=== PATIENT | female | born 1965 | race Hispanic/Latino ===

== ENCOUNTER 2022-07-13 16:11 | Inpatient (IN) | payer SELFPAY ==
[~2022-07-13] VITALS: Ht 157.5 cm; Wt 61.2 kg
[2022-07-13 17:00] LABS: BASOPHILS # (AUTO) 0.1 (0.0-0.1); BASOPHILS % 0.4 % (0.0-1.0); EOSINOPHILS # (AUTO) 0.1 (0.0-0.4); EOSINOPHILS % 0.7 % (0.0-6.0); HEMATOCRIT 27.3 % (34.2-44.1); HEMOGLOBIN 8.6 g/dL (12.0-16.0); LYMPHOCYTES % 16.3 % (18.0-39.1); MEAN CORPUSCULAR HEMOGLOBIN 23.2 pg (28-32); MEAN CORPUSCULAR HGB CONC 31.5 g/dL (31-35); MEAN CORPUSCULAR VOLUME 73.8 fL (81-99); MONOCYTES # (AUTO) 0.9 (0.2-0.8); NEUTROPHILS # (AUTO) 9.3 (2.1-6.9); NEUTROPHILS % 75.2 % (38.7-80.0); PLATELET COUNT 678 x10e3/uL (140-360); RED CELL DISTRIBUTION WIDTH 14.5 % (11.7-14.4)
[2022-07-13 17:27] LABS: ALBUMIN 2.7 g/dL (3.5-5.0); ALBUMIN/GLOBULIN RATIO 0.5 (0.8-2.0); ANION GAP 17.1 mmol/L (8-16); CALCIUM 8.5 mg/dL (8.4-10.2); CREATININE, SERUM 0.59 mg/dL (0.57-1.11); POTASSIUM 4.1 mmol/L (3.5-5.1)
[2022-07-13] MEDS ORDERED: SODIUM CHLORIDE 0.9% 1000ML 1,000 ML ONE (17:43)
[2022-07-13] MEDS ORDERED: SODIUM CHLORIDE 0.9% 1000ML 1,000 ML IV SCH (17:45)
[2022-07-13 20:45] VITALS: BP 130/76; PULSE 101; RESP 23; TEMP 98.3; O2SAT 96
[2022-07-13] MEDS ORDERED: METFORMIN HCL500 M2 PO (21:12)
[2022-07-13] MEDS ORDERED: METOPROLOL SUCC50 MG PO (21:12)
[2022-07-13] MEDS ORDERED: TRADJENTA5 MG PO (21:12)
[2022-07-13] MEDS ORDERED: LISINOPRIL10 MG PO (21:12)
[2022-07-13] MEDS ORDERED: LIPITOR20 MG PO (21:12)
[2022-07-13 21:30] VITALS: BP 130/76; PULSE 101; RESP 23; TEMP 98.3; O2SAT 96
[2022-07-13] MEDS: HYDROCODONE/APAP 5MG-325MG TAB PO PRN (21:47)
[2022-07-13 22:00] VITALS: BP 130/76; PULSE 101; RESP 23; TEMP 98.3; O2SAT 96
[2022-07-13] MEDS ORDERED: POLYETHYLENE GLYCOL 3350 17 GM PACK PO PRN (22:30)
[2022-07-13] MEDS ORDERED: ACETAMINOPHEN 325 MG TAB PO PRN (22:30)
[2022-07-13] MEDS ORDERED: METOPROLOL TARTRATE INJ 1 MG/ML VIAL IV PRN (22:30)
[2022-07-13] MEDS ORDERED: TEMAZEPAM 7.5 MG CAP PO PRN (22:30)
[2022-07-13] MEDS: ONDANSETRON HCL INJ 2MG/ML 2ML 2 MG/ML VIAL IV PRN (22:57)
[2022-07-13] MEDS: Morphine 2mg Syringe 2 MG/ML SYR IV PRN (22:57)
[2022-07-14] VITALS (8 sets, daily range): BP systolic 132–167; BP diastolic 70–84; PULSE 102–107; RESP 18–22; TEMP 98–98.5; O2SAT 96–100
[2022-07-14] MEDS: ONDANSETRON HCL INJ 2MG/ML 2ML 2 MG/ML VIAL IV PRN ×3 (04:51→16:45)
[2022-07-14] MEDS: Morphine 2mg Syringe 2 MG/ML SYR IV PRN (04:51)
[2022-07-14 05:14] LABS: BASOPHILS # (AUTO) 0.1 (0.0-0.1); BASOPHILS % 0.4 % (0.0-1.0); EOSINOPHILS # (AUTO) 0.1 (0.0-0.4); EOSINOPHILS % 0.9 % (0.0-6.0); HEMOGLOBIN 8.4 g/dL (12.0-16.0); LYMPHOCYTES # (AUTO) 2.1 (1.0-3.2); LYMPHOCYTES % 15.7 % (18.0-39.1); MEAN CORPUSCULAR HGB CONC 32.3 g/dL (31-35); MEAN CORPUSCULAR VOLUME 71.2 fL (81-99); MONOCYTES # (AUTO) 0.9 (0.2-0.8); NEUTROPHILS # (AUTO) 9.9 (2.1-6.9); NEUTROPHILS % 75.7 % (38.7-80.0); PLATELET COUNT 617 x10e3/uL (140-360); RED BLOOD COUNT 3.65 x10e6/uL (3.6-5.1); RED CELL DISTRIBUTION WIDTH 14.5 % (11.7-14.4)
[2022-07-14 05:35] LABS: ANION GAP 16.8 mmol/L (8-16); CALCIUM 8.4 mg/dL (8.4-10.2); CREATININE, SERUM 0.54 mg/dL (0.57-1.11); POTASSIUM 3.8 mmol/L (3.5-5.1)
[2022-07-14 05:59] LABS: CHOL/HDL RATIO 3.1 (3.0-3.6); PHOSPHORUS 2.9 MG/DL (2.3-4.7)
[2022-07-14 06:20] LABS: THYROID STIMULATING HORMONE 0.722 uIU/mL (0.350-4.940)
[2022-07-14 06:21] LABS: MAGNESIUM 0.8 MG/DL (1.3-2.1)
[2022-07-14] MEDS ORDERED: SODIUM CHLORIDE 0.9% 250ML 250 ML ONE (07:30)
[2022-07-14] MEDS: FAMOTIDINE 20 MG TAB PO SCH ×2 (07:44→16:45)
[2022-07-14] MEDS: HYDROCODONE/APAP 5MG-325MG TAB PO PRN ×3 (07:44→21:14)
[2022-07-14] MEDS ORDERED: MAGNESIUM SULFATE 2GM/50ML 50 ML IV ONE ×2 (07:45→15:30)
[2022-07-14 08:15] LABS: CLARITY,URINE SL CLOUDY (CLEAR); COLOR,URINE YELLOW (YELLOW); LEUKOCYTE ESTERASE ,URINE NEGATIVE (NEGATIVE); NITRITE,URINE POSITIVE (NEGATIVE)
[2022-07-14 08:16] LABS: KETONES,URINE 2+ (NEGATIVE); PROTEIN,URINE DIPSTICK 2+ (NEGATIVE); URINE UROBILINOGEN 0.2 mg/dL (0.2 - 1)
[2022-07-14 08:33] LABS: BACTERIA,URINE MANY /HPF; EPITHELIAL CELLS,URINE FEW /LPF
[2022-07-14] MEDS: DOCUSATE SODIUM 100 MG CAP PO SCH ×3 (09:00→17:00)
[2022-07-14] MEDS ORDERED: SODIUM CHLORIDE 0.9% 1000ML 1,000 ML IV SCH (15:00)
[2022-07-14] MEDS: METFORMIN HCL 500 MG TAB CR PO SCH (16:44)
[2022-07-14] MEDS ORDERED: SODIUM BICARBONATE 650 MG TAB PO SCH (17:00)
[2022-07-14] MEDS ORDERED: ONDANSETRON HCL INJ 2MG/ML 2ML 2 MG/ML VIAL IV PRN (17:00)
[2022-07-14] MEDS ORDERED: METOCLOPRAMIDE HCL 10 MG/2ML VIAL IV ONE (17:30)
[2022-07-14] MEDS: KETOROLAC TROMETHAMINE 30 MG/ML VIAL IV PRN (17:54)
[2022-07-14] MEDS ORDERED: INSULIN GLARGINE 100 UNITS/ML VIAL SQ SCH (21:00)
[2022-07-14] MEDS: ATORVASTATIN 40 MG TAB PO SCH (21:13)
[2022-07-15] VITALS (8 sets, daily range): BP systolic 104–133; BP diastolic 59–83; PULSE 92–115; RESP 16–19; TEMP 97.7–98.8; O2SAT 97–100
[2022-07-15] MEDS ORDERED: DEXTROSE 50% SYRINGE 50 ML IV PRN
[2022-07-15] MEDS ORDERED: METOCLOPRAMIDE HCL 10 MG/2ML VIAL IV ONE ×2 (00:30→00:45)
[2022-07-15 00:37] LABS: % IRON SATURATION 6 % (15-50); IRON 21 ug/dL (50-170); TOTAL IRON BINDING CAPACITY 349 ug/dL (261-478); TRANSFERRIN 249 mg/dL (180-382)
[2022-07-15] MEDS ORDERED: SODIUM CHLORIDE 0.9% 1000ML 1,000 ML IV SCH ×2 (00:45→05:00)
[2022-07-15] MEDS: KETOROLAC TROMETHAMINE 30 MG/ML VIAL IV PRN (02:05)
[2022-07-15 05:24] LABS: BASOPHILS # (AUTO) 0.1 (0.0-0.1); BASOPHILS % 0.4 % (0.0-1.0); EOSINOPHILS # (AUTO) 0.1 (0.0-0.4); EOSINOPHILS % 0.5 % (0.0-6.0); HEMATOCRIT 25.1 % (34.2-44.1); HEMOGLOBIN 7.9 g/dL (12.0-16.0); LYMPHOCYTES # (AUTO) 1.4 (1.0-3.2); LYMPHOCYTES % 12.2 % (18.0-39.1); MEAN CORPUSCULAR HGB CONC 31.5 g/dL (31-35); MONOCYTES # (AUTO) 0.8 (0.2-0.8); MONOCYTES % 7.2 % (4.4-11.3); NEUTROPHILS # (AUTO) 9.2 (2.1-6.9); NEUTROPHILS % 79.2 % (38.7-80.0); PLATELET COUNT 596 x10e3/uL (140-360); RED BLOOD COUNT 3.44 x10e6/uL (3.6-5.1); RED CELL DISTRIBUTION WIDTH 14.6 % (11.7-14.4)
[2022-07-15 05:45] LABS: ANION GAP 11.5 mmol/L (8-16); CALCIUM 8.1 mg/dL (8.4-10.2); CREATININE, SERUM 0.63 mg/dL (0.57-1.11); MAGNESIUM 1.7 MG/DL (1.3-2.1); PHOSPHORUS 2.8 MG/DL (2.3-4.7); POTASSIUM 3.5 mmol/L (3.5-5.1)
[2022-07-15] MEDS: SODIUM CHLORIDE 0.9% 1000ML 1,000 ML IV SCH ×2 (05:46→17:21)
[2022-07-15] MEDS: HYDROCODONE/APAP 5MG-325MG TAB PO PRN ×2 (05:46→12:07)
[2022-07-15] MEDS ORDERED: METOCLOPRAMIDE HCL 10 MG/2ML VIAL IV SCH (07:30)
[2022-07-15] MEDS: METOCLOPRAMIDE HCL 10 MG/2ML VIAL IV SCH ×4 (08:30→21:32)
[2022-07-15] MEDS: INSULIN REGULAR, HUMAN 100 UNIT/1 ML SQ SCH ×4 (08:30→21:42)
[2022-07-15] MEDS: METFORMIN HCL 500 MG TAB CR PO SCH ×2 (08:30→17:21)
[2022-07-15] MEDS: FAMOTIDINE 20 MG TAB PO SCH ×2 (08:30→17:12)
[2022-07-15] MEDS: DOCUSATE SODIUM 100 MG CAP PO SCH ×2 (09:29→17:12)
[2022-07-15] MEDS: METOPROLOL SUCCINATE 50 MG TAB XL PO SCH (09:30)
[2022-07-15] MEDS: LISINOPRIL 20 MG TAB PO SCH (09:31)
[2022-07-15] MEDS ORDERED: MAGNESIUM SULF 1GRAM/DEXTROSE 100 ML IV ONE (15:00)
[2022-07-15] MEDS ORDERED: IRON SUCROSE 100 MG in SODIUM CHLORIDE 0.9% 100 ML IV SCH (18:00)
[2022-07-15] MEDS ORDERED: INSULIN GLARGINE 100 UNITS/ML VIAL SQ SCH (21:00)
[2022-07-15] MEDS: IRON SUCROSE 100 MG in SODIUM CHLORIDE 0.9% 100 ML IV SCH (21:00)
[2022-07-15] MEDS: ATORVASTATIN 40 MG TAB PO SCH (21:32)
[2022-07-16] VITALS (7 sets, daily range): BP systolic 128–149; BP diastolic 65–71; PULSE 73–113; RESP 17–19; TEMP 98–98.9; O2SAT 94–100
[2022-07-16] MEDS: HYDROCODONE/APAP 5MG-325MG TAB PO PRN (03:49)
[2022-07-16 05:35] LABS: BASOPHILS % 0.4 % (0.0-1.0); EOSINOPHILS # (AUTO) 0.1 (0.0-0.4); EOSINOPHILS % 0.6 % (0.0-6.0); HEMATOCRIT 25.2 % (34.2-44.1); LYMPHOCYTES # (AUTO) 1.7 (1.0-3.2); LYMPHOCYTES % 18.5 % (18.0-39.1); MEAN CORPUSCULAR HEMOGLOBIN 23.1 pg (28-32); MEAN CORPUSCULAR HGB CONC 31.7 g/dL (31-35); MEAN CORPUSCULAR VOLUME 72.6 fL (81-99); MONOCYTES # (AUTO) 0.8 (0.2-0.8); MONOCYTES % 8.9 % (4.4-11.3); NEUTROPHILS # (AUTO) 6.5 (2.1-6.9); NEUTROPHILS % 71.3 % (38.7-80.0); PLATELET COUNT 700 x10e3/uL (140-360); RED BLOOD COUNT 3.47 x10e6/uL (3.6-5.1); RED CELL DISTRIBUTION WIDTH 15.1 % (11.7-14.4)
[2022-07-16 06:06] LABS: ANION GAP 14.7 mmol/L (8-16); CALCIUM 8.7 mg/dL (8.4-10.2); CREATININE, SERUM 0.55 mg/dL (0.57-1.11); MAGNESIUM 1.4 MG/DL (1.3-2.1); POTASSIUM 3.7 mmol/L (3.5-5.1)
[2022-07-16] MEDS: INSULIN REGULAR, HUMAN 100 UNIT/1 ML SQ SCH ×4 (07:30→21:38)
[2022-07-16] MEDS ORDERED: MAGNESIUM SULFATE 2GM/50ML 50 ML IV ONE ×2 (08:00→10:00)
[2022-07-16] MEDS: (Linagliptin (Tradjenta) 5 MG) PO SCH (09:00)
[2022-07-16] MEDS: METOCLOPRAMIDE HCL 10 MG/2ML VIAL IV SCH ×4 (09:41→21:29)
[2022-07-16] MEDS: METFORMIN HCL 500 MG TAB CR PO SCH ×2 (09:42→18:10)
[2022-07-16] MEDS: FOLIC ACID 1 MG TAB PO SCH (09:42)
[2022-07-16] MEDS: LISINOPRIL 20 MG TAB PO SCH (09:42)
[2022-07-16] MEDS: FAMOTIDINE 20 MG TAB PO SCH ×2 (09:42→18:10)
[2022-07-16] MEDS: DOCUSATE SODIUM 100 MG CAP PO SCH ×2 (09:43→18:10)
[2022-07-16] MEDS: METOPROLOL SUCCINATE 50 MG TAB XL PO SCH (09:44)
[2022-07-16] MEDS: SODIUM CHLORIDE 0.9% 1000ML 1,000 ML IV SCH ×2 (09:45→21:00)
[2022-07-16] MEDS: IRON SUCROSE 100 MG in SODIUM CHLORIDE 0.9% 100 ML IV SCH (12:00)
[2022-07-16] MEDS: KETOROLAC TROMETHAMINE 30 MG/ML VIAL IV PRN (18:35)
[2022-07-16] MEDS: ATORVASTATIN 40 MG TAB PO SCH (21:29)
[2022-07-16] MEDS: INSULIN GLARGINE 100 UNITS/ML VIAL SQ SCH (21:38)
[2022-07-17] VITALS: BP 158/82; PULSE 106; RESP 18; TEMP 98.4; O2SAT 100
[2022-07-17] MEDS: HYDROCODONE/APAP 5MG-325MG TAB PO PRN (00:27)
[2022-07-17 04:00] VITALS: BP 139/67; PULSE 103; RESP 18; TEMP 98; O2SAT 100
[2022-07-17 07:35] LABS: BASOPHILS # (AUTO) 0.1 (0.0-0.1); BASOPHILS % 0.5 % (0.0-1.0); EOSINOPHILS % 0.4 % (0.0-6.0); HEMATOCRIT 24.2 % (34.2-44.1); LYMPHOCYTES # (AUTO) 2.3 (1.0-3.2); LYMPHOCYTES % 22.9 % (18.0-39.1); MEAN CORPUSCULAR HEMOGLOBIN 22.9 pg (28-32); MONOCYTES # (AUTO) 0.7 (0.2-0.8); MONOCYTES % 7.5 % (4.4-11.3); NEUTROPHILS # (AUTO) 6.8 (2.1-6.9); NEUTROPHILS % 68.4 % (38.7-80.0); RED BLOOD COUNT 3.27 x10e6/uL (3.6-5.1); RED CELL DISTRIBUTION WIDTH 15.5 % (11.7-14.4)
[2022-07-17 07:36] LABS: HEMOGLOBIN 7.5 g/dL (12.0-16.0); PLATELET COUNT 592 x10e3/uL (140-360)
[2022-07-17 07:45] LABS: ALBUMIN 2.1 g/dL (3.5-5.0); ALBUMIN/GLOBULIN RATIO 0.5 (0.8-2.0); ANION GAP 11.5 mmol/L (8-16); CALCIUM 8.4 mg/dL (8.4-10.2); CREATININE, SERUM 0.51 mg/dL (0.57-1.11); MAGNESIUM 1.4 MG/DL (1.3-2.1); POTASSIUM 3.5 mmol/L (3.5-5.1)
[2022-07-17 08:15] VITALS: BP 165/69; PULSE 101; RESP 19; TEMP 98; O2SAT 99
[2022-07-17 08:21] VITALS: BP 163/72; PULSE 101; RESP 19; TEMP 98; O2SAT 99
[2022-07-17] MEDS: FAMOTIDINE 20 MG TAB PO SCH (08:55)
[2022-07-17] MEDS: DOCUSATE SODIUM 100 MG CAP PO SCH (08:55)
[2022-07-17] MEDS: FOLIC ACID 1 MG TAB PO SCH (08:55)
[2022-07-17] MEDS: METFORMIN HCL 500 MG TAB CR PO SCH (08:56)
[2022-07-17] MEDS: LISINOPRIL 20 MG TAB PO SCH (08:56)
[2022-07-17] MEDS: METOCLOPRAMIDE HCL 10 MG/2ML VIAL IV SCH ×2 (08:57→12:25)
[2022-07-17] MEDS: (Linagliptin (Tradjenta) 5 MG) PO SCH (09:00)
[2022-07-17] MEDS: INSULIN GLARGINE 100 UNITS/ML VIAL SQ SCH (09:09)
[2022-07-17] MEDS: INSULIN REGULAR, HUMAN 100 UNIT/1 ML SQ SCH ×2 (09:10→12:32)
[2022-07-17] MEDS: SODIUM CHLORIDE 0.9% 1000ML 1,000 ML IV SCH (10:07)
[2022-07-17] MEDS: METOPROLOL SUCCINATE 50 MG TAB XL PO SCH (10:07)
[2022-07-17 11:42] VITALS: BP 169/76; PULSE 97; RESP 18; TEMP 98.3; O2SAT 95
[2022-07-17] MEDS: IRON SUCROSE 100 MG in SODIUM CHLORIDE 0.9% 100 ML IV SCH (12:24)
[2022-07-17] MEDS ORDERED: PROTONIX20 MG PO ×2 (15:29→15:37)
[2022-07-17] MEDS ORDERED: REGLAN5 MG PO (15:35)
[2022-07-17] MEDS ORDERED: KETOROLAC TROME10 MG PO (15:38)
[2022-07-17 16:09] VITALS: BP 159/76; PULSE 106; RESP 17; TEMP 98.6; O2SAT 100
[2022-07-17] MEDS ORDERED: ONDANSETRON HCL 4 MG ORAL DISINTEGRATING TAB PO PRN (16:30)
[2022-07-17] MEDS ORDERED: METOCLOPRAMIDE HCL 10 MG TAB PO SCH (16:30)
== END 2022-07-17 17:28 | disposition home or self-care (01) | DRG 641 ==
LOC: ER 16:20 → ERHOLD 17:41 → MED/SURG2 19:45
PROVIDERS: ADMIT Internal Medicine; ATTEND Internal Medicine
PROC: 02HV33Z Insertion of Infusion Device into Superior Vena Cava, Percutaneous Approach (ICD-10-PCS; principal; 2022-07-16)
PROC: B548ZZA Ultrasonography of Superior Vena Cava, Guidance (ICD-10-PCS; 2022-07-16)
DX: E87.1 Hypo-osmolality and hyponatremia (principal); N39.0 Urinary tract infection, site not specified; E86.0 Dehydration; E83.42 Hypomagnesemia; E11.65 Type 2 diabetes mellitus with hyperglycemia; E11.43 Type 2 diabetes mellitus with diabetic autonomic (poly)neuropathy; K31.84 Gastroparesis; R11.2 Nausea with vomiting, unspecified; K22.2 Esophageal obstruction; R13.19 Other dysphagia; K21.9 Gastro-esophageal reflux disease without esophagitis; E87.20 Acidosis, unspecified; R07.89 Other chest pain; R00.0 Tachycardia, unspecified; M19.90 Unspecified osteoarthritis, unspecified site; I10 Essential (primary) hypertension; D64.9 Anemia, unspecified; Z79.4 Long term (current) use of insulin; Z79.84 Long term (current) use of oral hypoglycemic drugs
CPT/HCPCS: 36415; 36569; 71045; 72040; 80048; 80053; 80061; 81001; 82607; 82746; 82947; 82948; 83036; 83540; 83735; 83935; 84100; 84295; 84300; 84443; 84466; 84520; 85025; 85045; 87086; 87186; 87400; 93005; 96361; 99284; J0696; J1756; J1885; J2270; J2405; J2765; J3475; J7030; J7050